=== PATIENT | male | born 1975 | race African-American/Black ===

== ENCOUNTER 2016-12-09 06:34 | Day surgery (SDC) | payer OTHER ==
[~2016-12-09 06:34] MED LIST: RINGERS SOLUTION,LACTATED 1,000 ML IV PRN; ceFAZolin SODIUM 1 GM VIAL IV PRN
--- NOTE | 2016-12-09 09:26 | OR ---
Operative Report - Dictated Report Narrative: Date: 12/09/2016 Physician: Evin Ledesma M.D. Ham Marker: Roney Arenas PA-C Preoperative diagnosis: Left Shoulder biceps tendinopathy Postoperative diagnosis: Left Shoulder biceps tendinopathy with type I labral tear Procedure: Left shoulder arthroscopy with open biceps tenodesis, labral debridement Anesthesia: General plus regional Complications: None Estimated blood loss: Minimal Specimens: None Retained implants: [employer] 9 x 25 mm peek biceptor interference screw Drains: None Indications: Mr. Gonzalez Is a 41 year-old gentleman who has been followed in my clinic with complaints of shoulder pain consistent work-related pain in the subacromial space and biceps area. Physical exam and diagnostic imaging were consistent with his complaints and concern for biceps tendinopathy. Conservative measures have failed including, but not limited to, passage of time, activity modification, medications, physical therapy/home exercise program, or injections. The risks, benefits, and alternatives were discussed in clinic. The risks being , bleeding, infection, blood clots, nerve, tendon, ligament , blood vessel injury, persistent pain, arthrosis, stiffness, need for prolonged therapy, need for additional procedures, and persistent symptoms. Consent was obtained in the clinic. Procedure: After marking the correct extremity in the preoperative holding area, a timeout was performed in the operating room. IV antibiotics consisting of Ancef were administered prior to the procedure. A general followed by regional anesthetic was induced by the nurse cook helper. This was in the supine position, then the patient was transitioned to a beachchair position with all bony prominences well-padded, head in neutral, the nonoperative arm well supported, and the legs padded with SCDs in place. The operative shoulder was then prepped and draped in a standard sterile fashion. Preoperatively the shoulder had full passive range of motion, and and stability. After marking out the bony landmarks, saline was infused into the joint through a posterior lateral portal site. A brooke incision was made, and the blunt trocar and cannula was introduced into the shoulder joint. An accessory portal was placed in the rotator cuff interval using a spinal needle for guidance. Upon initial evaluation, the biceps tendon showed tendinopathy extra articularly as well as some mild instability. The middle glenohumeral ligament was intact. Subscapularis tendon was and unremarkable. The glenoid showed no arthrosis. The humeral head articular surface showed no arthrosis. The anterior labrum was frayed but not elevated. This is a type I type tear. The superior labrum was unremarkable. The pouch was unremarkable. The posterior labrum was unremarkable. The supraspinatus tendon was intact. The infraspinatus tendon was intact. Utilizing anterior portal the biceps was tagged. It was then transected as it inserted onto the labrum and the remaining biceps tissue as well as the frayed anterior labrum was debrided using shaver. Attention was then turned to the subacromial space. Subacromial bursectomy was performed utilizing the prior portals. The coracoacromial ligament was not visualized. The bursal side of the rotator cuff demonstrated no tear. The acromial arch was unremarkable. There was notable scar tissue in the subacromial space consistent with his prior surgical treatment. We then extended the anterior portal in order to expose the proximal biceps tendon and groove. This was mobilized out of the joint and the bicipital groove was rongeured and rasped. The biceps measure up to 9 mm and a guidewire followed by acorn reamer was utilized in order to prepare a bone tunnel. This was then tapped and the biceps tendon was mobilized into the tunnel. A 9 x 25 mm interference screw was then placed securing the biceps and normal need attention. The extra biceps tendon was then excised. The groove and portal site were closed with Ethibond and the deltoid fascia was closed with 0 Vicryl subcutaneous 3-0 Vicryl and the skin with 3-0 nylon. Dressings consisting of Xeroform, 4 x 4, ABD, soft roll, and tape were applied. All sponge, needle, blade, and instrument counts were correct prior to closing the wounds. The patient was awoken and transferred to the postanesthesia care unit in stable condition.
[2016-12-09] MEDS ORDERED: RINGERS SOLUTION,LACTATED 1,000 ML IV ONE (09:35)
[2016-12-09 11:51] VITALS: BP 155/97
== END 2016-12-09 06:35 | disposition home or self-care (01) ==
LOC: AMB 06:34
PROVIDERS: ATTEND Orthopaedic Surgery
PROC: 0RBK4ZZ Excision of Left Shoulder Joint, Percutaneous Endoscopic Approach (ICD-10-PCS; 2016-12-09)
PROC: 0LS24ZZ Reposition Left Shoulder Tendon, Percutaneous Endoscopic Approach (ICD-10-PCS; principal; 2016-12-09 08:00)
DX: M75.22 Bicipital tendinitis, left shoulder (principal); S43.492A Other sprain of left shoulder joint, initial encounter; F17.200 Nicotine dependence, unspecified, uncomplicated; Z68.27 Body mass index [BMI] 27.0-27.9, adult